=== PATIENT | male | born 1995 | race Caucasian/White ===

== ENCOUNTER 2024-08-25 11:56 | Emergency (ER) | payer SELFPAY ==
[~2024-08-25] VITALS: Ht 175.3 cm; Wt 80.0 kg
[2024-08-25] MEDS: OLANZAPINE 5MG TABLET ODT PO ONE (13:01)
[2024-08-25 13:36] LABS: BASOPHILS % 0.2 % (0.0-2.0); EOSINOPHILS % 0.2 % (0.0-5.0); HEMATOCRIT. 38.3 % (42.0-52.0); HEMOGLOBIN. 12.7 g/dL (14.0-18.0); LYMPHOCYTES % 16.6 % (20.0-50.0); MEAN CORPUSCULAR HGB CONC 33.2 g/dL (31.0-37.0); MEAN CORPUSCULAR VOLUME 84.5 fL (80.0-94.0); MEAN PLATELET VOLUME 7.5 fl (7.4-10.4); MONOCYTES % 8.8 % (2.0-8.0); NEUTROPHILS % 74.2 % (40.0-76.0); PLATELET 280 x1000/uL (130-400); RED BLOOD CELL COUNT 4.54 mill/uL (4.7-6.1); RED CELL DISTRIBUTION WIDTH 15.4 % (11.6-14.6); WHITE BLOOD COUNT 10.3 x1000/uL (4.5-11.0)
[2024-08-25 13:38] LABS: CHLORIDE 106 mEq/L (98-107); POTASSIUM 3.8 mEq/L (3.5-5.1); SODIUM 142 mEq/L (136-145)
[2024-08-25 13:39] LABS: CALCIUM 9.3 mg/dL (8.7-10.4); CARBON DIOXIDE 26 mEq/L (21-32)
[2024-08-25 13:44] LABS: GLUCOSE 100 mg/dL (70-105); UREA NITROGEN BLOOD 11 mg/dL (9-23)
[2024-08-25 13:46] LABS: ACETAMINOPHEN < 2 ug/mL (10-30)
[2024-08-25 13:53] LABS: ETHANOL BLOOD < 10 mg/dL (<10)
[2024-08-25 14:30] VITALS: O2SAT 99
[2024-08-25] MEDS: MIDAZOLAM HCL 2 MG/2 ML VIAL IM NR (14:30)
[2024-08-25] MEDS: OLANZAPINE 10 MG/VIAL IM NR (14:30)
[2024-08-25 15:22] LABS: CLARITY URINE TURBID (CLEAR); COLOR URINE YELLOW (YELLOW); GLUCOSE URINE NEGATIVE (NEGATIVE); KETONES URINE TRACE (NEGATIVE); LEUKOCYTE ESTERASE URINE NEGATIVE (NEGATIVE); NITRITE URINE NEGATIVE (NEGATIVE); OCCULT BLOOD URINE NEGATIVE (NEGATIVE); PROTEIN URINE 2+ (NEGATIVE); SPECIFIC GRAVITY URINE 1.018 (1.005-1.030)
[2024-08-25 15:41] LABS: *AMPHETAMINES SCREEN URINE PRESUMPTIVE POSITIVE (NEGATIVE); *BARBITURATES SCREEN URINE NEGATIVE (NEGATIVE); *BENZODIAZEPINES SCREEN URINE NEGATIVE (NEGATIVE); *COCAINE SCREEN URINE NEGATIVE (NEGATIVE); METHADONE URINE SCREEN NEGATIVE (NEGATIVE); OPIATES URINE SCREEN NEGATIVE (NEGATIVE)
[2024-08-25 15:42] LABS: CANNABINOID URINE SCREEN PRESUMPTIVE POSITIVE (NEGATIVE); ECSTASY MDMA SCREEN URINE CONF.TEST INDICATED (NEGATIVE); PHENCYCLIDINE URINE SCREEN NEGATIVE (NEGATIVE)
[2024-08-25 16:05] LABS: BACTERIA URINE 1+; RBC URINE 0-2 /hpf (0-2); SQUAMOUS EPITHELIAL CELL URINE 1+ /lpf (RARE/1+)
[2024-08-26] MEDS: LORAZEPAM 2MG/ML INJ IM ONE (07:30)
[2024-08-26] MEDS: OLANZAPINE 10 MG/VIAL IM ONE (07:30)
[2024-08-26 09:58] VITALS: TEMP 36.83628
[2024-08-26 12:21] VITALS: BP 129/78; PULSE 98; RESP 16; O2SAT 98
== END 2024-08-26 12:43 ==
LOC: ER 11:56
DX: R46.2 Strange and inexplicable behavior (principal)
CPT/HCPCS: 80305; 80048; 81003; 80307; 80329; 80320; 85025; 36415; 96372 ×2; 99285; J3490 ×2; J2250; Z7610 ×3; J2060; G0480